=== PATIENT | male | born 1950 | race Caucasian/White ===

== ENCOUNTER 2016-10-13 02:56 | Emergency (ER) | payer OTHER ==
[~2016-10-13] VITALS: Ht 182.9 cm; Wt 110.0 kg
[2016-10-13 03:28] LABS: ADD MIUA? YES; BILIRUBIN NEGATIVE; BLOOD LARGE; COLOR YELLOW ((YELLOW)); GLUCOSE (STRIP) NEGATIVE; KETONES NEGATIVE; LEUKOCYTES NEGATIVE; NITRITE NEGATIVE; PROTEIN (STRIP) 100; UROBILINOGEN 0.2 MG/DL (0.2-1.0)
[2016-10-13 03:41] LABS: HEMATOCRIT 45.1 % (38.0-50.0); MCH 32.8 PG (29.0-34.0); MCHC 33.5 G/DL (30.0-36.0); MEAN PLAT.VOLUME 9.7 uM^3 (9.0-12.4); PLATELET COUNT 177 K/uL (156-360); RBC DIS.WIDTH-CV 13.2 % (11.8-14.6); RBC DIS.WIDTH-SD 46.6 % (39-53); WHITE BLOOD COUNT 5.5 K/uL (4.1-10.2)
[2016-10-13 03:42] LABS: BACTERIA NONE SEEN /HPF; EPITHELIAL CELLS RARE /HPF; MUCUS 1+ /LPF; RED BLOOD CELLS TNTC /HPF (0-5); UCUL ADDED? NO
[2016-10-13 03:51] LABS: CHLORIDE 103 mEq/L (99-109); SODIUM 137 mEq/L (136-147)
[2016-10-13 03:53] LABS: GLUCOSE 127 mg/dL (70-99)
[2016-10-13 03:54] LABS: ANION GAP 11 MEQ/L (2-14)
[2016-10-13 03:58] LABS: UREA NITROGEN (BUN) 14 mg/dL (9-23)
[2016-10-13 04:05] LABS: GFR ESTIMATE (CALCULATED) > 59 mL/min/
[2016-10-13] MEDS ORDERED: PERCOCET 5/31 TABLET PO (05:17)
[2016-10-13] MEDS ORDERED: ZOFRAN ODT4 MG PO (05:17)
[2016-10-13] MEDS ORDERED: FLOMAX0.4 MG PO (05:17)
[2016-10-13] MEDS ORDERED: CIPRO500 MG PO (05:17)
[2016-10-13 05:33] VITALS: BP 95/63
== END 2016-10-13 05:43 | disposition home or self-care (01) ==
LOC: EME 02:56
DX: N20.1 Calculus of ureter (principal); Z87.442 Personal history of urinary calculi
CPT/HCPCS: 74176; 80048; 81003; 85027; 87086; 99281; 99284; J1885; J2270; J2405; J3010; J7030